=== PATIENT | male | born 1970 | race African-American/Black ===

== ENCOUNTER 2016-12-09 22:49 | Emergency (ER) | payer BC, OTHER, SELFPAY | END 2016-12-09 23:25 | disposition home or self-care (01) | LOC: NAV ERS 22:49 | DX: I10 Essential (primary) hypertension (principal); R53.83 Other fatigue; F41.9 Anxiety disorder, unspecified; F32.9 Major depressive disorder, single episode, unspecified; I48.91 Unspecified atrial fibrillation; Z79.899 Other long term (current) drug therapy; Z91.19 Patient's noncompliance with other medical treatment and regimen | CPT/HCPCS: 36416; 99284 ==

== ENCOUNTER 2016-12-23 23:47 | Emergency (ER) | payer BC ==
[2016-12-24] MEDS ORDERED: Metoprolol Tartrate 50 MG TAB ONE (00:57)
== END 2016-12-24 02:00 | disposition home or self-care (01) ==
LOC: NAV ERS 23:47
DX: I16.0 Hypertensive urgency (principal); I48.91 Unspecified atrial fibrillation; F41.9 Anxiety disorder, unspecified; F32.9 Major depressive disorder, single episode, unspecified; F17.210 Nicotine dependence, cigarettes, uncomplicated
CPT/HCPCS: 99283

== ENCOUNTER 2018-09-22 00:51 | Emergency (ER) | payer BC, SELFPAY | END 2018-09-22 01:27 | disposition home or self-care (01) | LOC: NAV ERS 00:51 | DX: J06.9 Acute upper respiratory infection, unspecified (principal); I10 Essential (primary) hypertension; F41.9 Anxiety disorder, unspecified; F32.9 Major depressive disorder, single episode, unspecified; I48.91 Unspecified atrial fibrillation; Z79.899 Other long term (current) drug therapy | CPT/HCPCS: 99281 ==

== ENCOUNTER 2019-05-25 13:21 | Emergency (ER) | payer BC ==
[2019-05-25] MEDS ORDERED: Ondansetron PF 4 MG/2 ML Vial ONE (13:47)
[2019-05-25] MEDS ORDERED: cloNIDine 0.2 MG TAB ONE (13:47)
[2019-05-25] MEDS ORDERED: Amlodipine 5 MG TAB ONE (13:47)
[2019-05-25 14:21] LABS: #Basophils 0.1 thou/uL (0.0-0.2); #Eosinphils 0.3 thou/uL (0.0-0.7); #Lymphocytes 3.1 thou/uL (1.20-3.40); #Monocytes 0.5 thou/uL (0.11-0.59); #Neutrophils 2.3 thou/uL (1.40-6.50); %Basophils 1.2 % (0.0-1.0); %Eosinophils 4.4 % (0.0-10.0); %Lymphocytes 49.7 % (21.0-51.0); %Monocytes 7.3 % (0.0-10.0); %Neutrophils 37.4 % (42.0-75.0); Hemoglobin 14.8 g/dL (14.0-18.0); Mean Corpuscular HGB CONC 31.4 g/dL (32.0-36.0); Mean Corpuscular Hemoglobin 28.7 pg (27.0-31.0); Mean Corpuscular Volume 91.2 fL (78.0-98.0); Mean Platelet Volume 6.7 fL (7.4-10.4); Platelet Count 227 thou/uL (130-400); RBC Distribution Width 14.2 % (11.5-14.5); Red Blood Cell (RBC) Count 5.17 mill/uL (4.70-6.10); White Blood Cell (WBC) Count 6.1 thou/uL (4.8-10.8)
[2019-05-25 14:24] LABS: ALT (SGPT) 29 U/L (8-55); AST (SGOT) 22 U/L (5-34); Albumin 4.3 g/dL (3.5-5.0); Alkaline Phosphatase 63 U/L (40-150); Anion Gap 13 mmol/L (10-20); BUN (Urea Nitrogen) 15 mg/dL (8.9-20.6); Bilirubin, Total 0.4 mg/dL (0.2-1.2); Calc. Creatinine Clearance 0 mL/min (70-130); Calcium 9.2 mg/dL (7.8-10.44); Carbon Dioxide 28 mmol/L (22-29); Chloride 102 mmol/L (98-107); Estimated GFR-MDRD 75; Globulin 3.5 g/dL (2.4-3.5); Glucose 110 mg/dL (70-105); Potassium 3.3 mmol/L (3.5-5.1); Protein, Total 7.8 g/dL (6.0-8.3); Sodium 140 mmol/L (136-145)
--- NOTE | 2019-05-25 14:31 | CT ---
Exam: CT brain PROVIDED CLINICAL HISTORY: Headache COMPARISON: None FINDINGS: The ventricular system is normal in size and morphology. No evidence for intracranial hemorrhage or mass effect. The extracranial soft tissues and osseous structures demonstrate no evidence for an acute abnormality. IMPRESSION: No evidence for intracranial hemorrhage or mass effect.
== END 2019-05-25 15:09 | disposition home or self-care (01) ==
LOC: NAV ERS 13:21
DX: I10 Essential (primary) hypertension (principal); I49.9 Cardiac arrhythmia, unspecified; I48.91 Unspecified atrial fibrillation; F41.9 Anxiety disorder, unspecified; Z79.899 Other long term (current) drug therapy
CPT/HCPCS: 70450; 80053; 85025; 96374; J2405

== ENCOUNTER 2021-01-16 02:43 | Emergency (ER) | payer BC, SELFPAY ==
[2021-01-16] MEDS ORDERED: Acetaminophen 500 MG TAB ONE (03:11)
[2021-01-16] MEDS ORDERED: Amlodipine 5 MG TAB ONE (03:11)
== END 2021-01-16 03:59 | disposition home or self-care (01) ==
LOC: NAV ERS 02:43
DX: I10 Essential (primary) hypertension (principal); I48.91 Unspecified atrial fibrillation; Z79.899 Other long term (current) drug therapy
CPT/HCPCS: 93005

== ENCOUNTER 2022-11-19 05:10 | Emergency (ER) | payer SELFPAY ==
[2022-11-19] MEDS ORDERED: cloNIDine 0.1 MG TAB ONE ×2 (05:39→06:49)
[2022-11-19 05:48] LABS: #Eosinphils 0.3 thou/uL (0.0-0.7); #Lymphocytes 2.5 thou/uL (1.20-3.40); #Monocytes 0.5 thou/uL (0.11-0.59); %Basophils 0.7 % (0.0-1.0); %Eosinophils 4.3 % (0.0-10.0); %Monocytes 8.6 % (0.0-10.0); %Neutrophils 47.4 % (42.0-75.0); Hemoglobin 13.8 g/dL (14.0-18.0); Mean Corpuscular Hemoglobin 29.9 pg (27.0-31.0); Mean Corpuscular Volume 93.4 fl (78.0-98.0); Platelet Count 183 10x3/uL (130-400); RBC Distribution Width 13.2 % (11.5-14.5); Red Blood Cell (RBC) Count 4.63 mill/uL (4.70-6.10); White Blood Cell (WBC) Count 6.3 10x3/uL (4.8-10.8)
[2022-11-19 06:01] LABS: ALT (SGPT) 22 U/L (8-55); AST (SGOT) 17 U/L (5-34); Alkaline Phosphatase 60 U/L (40-110); Anion Gap 13 mmol/L (10-20); BUN (Urea Nitrogen) 17 mg/dL (8.4-25.7); Bilirubin, Total 0.5 mg/dL (0.2-1.2); Calc. Creatinine Clearance 0 mL/min (70-130); Calcium 9.3 mg/dL (7.8-10.44); Carbon Dioxide 29 mmol/L (22-29); Chloride 105 mmol/L (98-107); Estimated GFR 58; Globulin 3.5 g/dL (2.4-3.5); Glucose 101 mg/dL (70-105); Protein, Total 7.5 g/dL (6.0-8.3); Sodium 144 mmol/L (136-145)
[2022-11-19] MEDS ORDERED: Potassium Chloride 20 MEQ TAB ONE (07:45)
[2022-11-19] MEDS ORDERED: Amlodipine 5 MG TAB ONE (07:45)
[2022-11-19] MEDS ORDERED: Lisinopril 10 MG TAB ONE (08:12)
[2022-11-19 22:00] LABS: Chlam.trachomatis by PCR,Urine Not Detected (NotDetected); GC N.gonorrhoeae PCR,UrineVOID Not Detected (NotDetected)
== END 2022-11-19 08:14 | disposition home or self-care (01) ==
LOC: NAV ERS 05:10
DX: I10 Essential (primary) hypertension (principal); F41.9 Anxiety disorder, unspecified; I48.91 Unspecified atrial fibrillation
CPT/HCPCS: 71045; 80053; 83880; 84484; 85025; 87491; 87591; 93005